=== PATIENT | male | born 1975 | race Caucasian/White ===

== ENCOUNTER 2022-02-23 18:10 | Emergency (ER) | payer OTHER ==
[~2022-02-23] VITALS: Ht 180.3 cm; Wt 79.4 kg
[2022-02-23 20:07] LABS: HEMATOCRIT 36.7 % (42.0-52.0); MEAN CORPUSCULAR HGB 28.7 pg (27.0-31.0); MEAN PLATELET VOLUME 9.7 fl (9.6-12.3); PLATELET COUNT AUTOMATED 256 10*3/uL (130-400); RED BLOOD COUNT 4.22 10*6/uL (4.50-5.90); RED CELL DISTRI WIDTH 13.8 % (0-14.5); WHITE BLOOD COUNT 13.2 10*3/uL (4.8-10.8)
[2022-02-23 20:09] LABS: MANUAL DIFF REFLEX YES
[2022-02-23 20:32] LABS: ALKALINE PHOSPHATASE 462 U/L (45-117); BUN 72 mg/dl (7-24); CHLORIDE 102 mmol/L (98-107); CREATININE 4.99 mg/dL (0.70-1.30); POTASSIUM 5.6 mmol/L (3.5-5.1); SGOT/AST 51 IU/L (3-35); SGPT/ALT 21 U/L (12-78); SODIUM 138 mmol/L (136-145); TOTAL PROTEIN 7.5 gm/dL (6.4-8.2)
[2022-02-23 20:35] LABS: CPK 39 U/L (39-308)
[2022-02-23 20:56] LABS: ETHYL ALCOHOL < 3.0 mg/dl (<3)
[2022-02-23 20:57] LABS: ACETAMINOPHEN (TYLENOL) < 5.0 ug/ml (10-30)
[2022-02-23 21:10] LABS: BASOPHILS 4 % (0-1); TOTAL CELLS COUNTED 100 #CELLS
[2022-02-23 21:12] LABS: BLASTS 3 % (0-0)
[2022-02-23 21:14] LABS: TARGET CELLS FEW
[2022-02-23 21:16] LABS: POLYCHROMASIA SLIGHT
[2022-02-23 21:17] LABS: BURR CELLS MODERATE
[2022-02-23 21:20] LABS: PLATELET SUFFICIENCY NORMAL (NORMAL)
[2022-02-23 21:44] LABS: INTERNATIONAL NORM RATIO 1.1 (2.0-3.5)
[2022-02-24 00:24] LABS: BILIRUBIN Negative (Negative); BLOOD 3+ (Negative); CLARITY Clear (Clear); COLOR Yellow (Yellow); GLUCOSE Negative (Negative); KETONE Negative (Negative); LEUKO ESTERASE 1+ (Negative); NITRITE Negative (Negative); UROBILINOGEN 0.2 E.U./dl (0.0-1.0)
[2022-02-24 00:30] LABS: URINE AMPHETAMINES < 1000 (1000ng/ml); URINE BARBITURATES < 200 (200ng/ml); URINE BENZODIAZEPINES > 200 (200ng/ml); URINE CANNABINOIDS (THC) < 50 (50ng/ml); URINE COCAINE < 300 (300ng/ml); URINE METHADONE < 300 (300ng/ml); URINE OPIATES < 300 (300ng/ml); URINE PHENCYCLIDINE < 25 (25ng/ml)
[2022-02-24 00:55] LABS: BACTERIA 1+; RBC 41-50 rbc/hpf (0-2)
== END 2022-02-24 03:00 | disposition short-term general hospital (02) ==
LOC: ED 18:10
PROVIDERS: Emergency Medicine; Physician Assistant
DX: N17.9 Acute kidney failure, unspecified (principal); G93.40 Encephalopathy, unspecified; E87.2 Acidosis; E83.52 Hypercalcemia